=== PATIENT | male | born 1985 | race Asian ===

== ENCOUNTER 2023-02-16 19:06 | Emergency (ER) | payer MEDICAID ==
[~2023-02-16] VITALS: Ht 170.2 cm; Wt 81.6 kg
[2023-02-16 19:27] VITALS: BP_SYST 117; PULSE 77; RESP 16; TEMP 97.9; O2SAT 98
[2023-02-16 20:33] VITALS: BP_SYST 132; PULSE 88; RESP 18; TEMP 98.3; O2SAT 99
== END 2023-02-16 20:33 ==
LOC: SED 19:06
DX: R55 Syncope and collapse (principal); I10 Essential (primary) hypertension; Z79.899 Other long term (current) drug therapy
CPT/HCPCS: 82962; 93005; 99283